=== PATIENT | male | born 1950 | race Hispanic/Latino ===

== ENCOUNTER 2018-02-07 13:10 | Inpatient (IN) | payer OTHER ==
[~2018-02-07] VITALS: Ht 167.6 cm; Wt 72.1 kg
[2018-02-07 14:02] LABS: BASOPHILS % (AUTO) 1.5 % (0.0-5.0); EOSINOPHILS % (AUTO) 6.7 % (0.0-8.0); LYMPHOCYTES % (AUTO) 19.4 % (21.0-51.0); MEAN CORPUSCULAR HEMOGLOBIN 32.2 pg (27.0-33.0); MEAN CORPUSCULAR HGB CONC 34.9 g/dL (32.0-36.0); MEAN CORPUSCULAR VOLUME 92.2 fL (79-99); MONOCYTES % (AUTO) 8.3 % (3.0-13.0); NEUTROPHILS % (AUTO) 64.1 % (40.0-77.0); NUCLEATED RED BLOOD CELLS 0.1 % (0.0-0.19); PLATELET COUNT (AUTO) 249 K/uL (130-400); RED BLOOD CELL COUNT(AUTO) 3.15 MIL/uL (4.50-6.20); RED CELL DISTRIBUTION WIDTH 14.9 % (11.0-15.5); WHITE BLOOD COUNT (AUTO) 7.7 K/uL (4.8-10.8)
[2018-02-07] MEDS ORDERED: CEFEPIME HCL 1 GM VIAL ONE (14:03)
[2018-02-07 14:07] LABS: CREATININE 3.3 mg/dL (0.5-1.5)
[2018-02-07 14:13] LABS: ALBUMIN 3.1 g/dL (3.5-5.0); BILIRUBIN,TOTAL 0.4 mg/dL (0.2-1.0); TOTAL PROTEIN, SERUM 8.2 g/dL (6.0-8.3)
[2018-02-07 15:00] VITALS: BP 143/76
[2018-02-07] MEDS ORDERED: 1/2 NORMAL SALINE 1,000 ML IV SCH (15:00)
[2018-02-07] MEDS ORDERED: DEXTROSE 50%-WATER 50 ML DISP.SYRIN IV PRN (15:15)
[2018-02-07] MEDS ORDERED: SODIUM POLYSTYRENE SULFONATE 15 GM/60 ML ML PO SCH (15:15)
[2018-02-07] MEDS ORDERED: GLUCAGON 1MG KIT 1 MG ML IM PRN (15:15)
[2018-02-07] MEDS: INSULIN R PO SS1 SQ SCH ×2 (16:30→21:00)
[2018-02-07] MEDS ORDERED: GLIP2.5T2 PO (16:36)
[2018-02-07] MEDS ORDERED: CHOLECALCIFEROL PO (16:36)
[2018-02-07] MEDS ORDERED: FERR325T22 PO (16:36)
[2018-02-07] MEDS ORDERED: PANT40TA PO (16:36)
[2018-02-07] MEDS ORDERED: ATOR40TA69 PO (16:36)
[2018-02-07] MEDS ORDERED: AMLO5TAB2 PO (16:36)
[2018-02-07] MEDS ORDERED: ASPI-449 PO (16:36)
[2018-02-07] MEDS ORDERED: METO37.5 PO (16:36)
[2018-02-07] MEDS ORDERED: ERGO2500 PO (16:36)
[2018-02-07] MEDS ORDERED: SODIUM POLYSTYRENE SULFONATE 15 GM/60 ML ML PO NR (19:00)
[2018-02-07 20:00] VITALS: BP 161/81
[2018-02-07] MEDS: CEFEPIME HCL 1 GM VIAL IVP SCH (22:03)
[2018-02-07 23:54] VITALS: BP 149/79
[2018-02-08 04:00] VITALS: BP 144/77
[2018-02-08 04:53] LABS: HEMATOCRIT 25.2 % (42-54); MEAN CORPUSCULAR HEMOGLOBIN 32.1 pg (27.0-33.0); MEAN CORPUSCULAR HGB CONC 35.5 g/dL (32.0-36.0); MEAN CORPUSCULAR VOLUME 90.5 fL (79-99); PLATELET COUNT (AUTO) 234 K/uL (130-400); RED BLOOD CELL COUNT(AUTO) 2.79 MIL/uL (4.50-6.20); RED CELL DISTRIBUTION WIDTH 14.7 % (11.0-15.5); WHITE BLOOD COUNT (AUTO) 6.3 K/uL (4.8-10.8)
[2018-02-08 05:14] LABS: ALBUMIN 2.7 g/dL (3.5-5.0); BILIRUBIN,TOTAL 0.3 mg/dL (0.2-1.0); CREATININE 3.2 mg/dL (0.5-1.5); POTASSIUM 4.8 mmol/L (3.5-5.1); TOTAL PROTEIN, SERUM 7.3 g/dL (6.0-8.3)
[2018-02-08] MEDS: INSULIN R PO SS1 SQ SCH ×4 (06:34→21:00)
[2018-02-08 08:25] VITALS: BP 149/76
[2018-02-08] MEDS: AMLODIPINE BESYLATE 5 MG TAB PO SCH ×2 (08:53→22:29)
[2018-02-08] MEDS: CEFEPIME HCL 1 GM VIAL IVP SCH ×2 (08:53→22:28)
[2018-02-08] MEDS: METOPROLOL TARTRATE 25 MG TAB PO SCH ×2 (08:53→22:28)
[2018-02-08] MEDS: FERROUS SULFATE 325 MG TABLET.DR PO SCH (08:53)
[2018-02-08] MEDS: ASPIRIN 81 MG EC TAB PO SCH (08:53)
[2018-02-08] MEDS: PANTOPRAZOLE SODIUM 40 MG TABLET.DR PO SCH ×2 (08:53→22:28)
[2018-02-08] MEDS: GLIPIZIDE XL 2.5MG TAB PO SCH (08:54)
[2018-02-08] MEDS: CHOLECALCIFEROL 2000 UNIT PO SCH (09:00)
[2018-02-08] MEDS ORDERED: ERGOCALCIFEROL (VITAMIN D2) 50,000 UNIT CAPSULE PO SCH (09:00)
[2018-02-08 11:57] VITALS: BP 150/78
[2018-02-08] MEDS: 1/2 NORMAL SALINE 1,000 ML IV SCH ×2 (12:49→22:29)
[2018-02-08 15:41] VITALS: BP 142/73
[2018-02-08 19:57] VITALS: BP 162/85
[2018-02-08] MEDS: ATORVASTATIN CALCIUM 40 MG TABLET PO SCH (22:27)
[2018-02-08 23:56] VITALS: BP 136/71
[2018-02-09 04:00] VITALS: BP 129/65
[2018-02-09 04:45] LABS: HEMATOCRIT 26.5 % (42-54); MEAN CORPUSCULAR HEMOGLOBIN 30.4 pg (27.0-33.0); MEAN CORPUSCULAR HGB CONC 33.8 g/dL (32.0-36.0); MEAN CORPUSCULAR VOLUME 90.1 fL (79-99); PLATELET COUNT (AUTO) 245 K/uL (130-400); RED BLOOD CELL COUNT(AUTO) 2.94 MIL/uL (4.50-6.20); RED CELL DISTRIBUTION WIDTH 14.3 % (11.0-15.5); WHITE BLOOD COUNT (AUTO) 7.2 K/uL (4.8-10.8)
[2018-02-09 04:56] LABS: CREATININE 2.8 mg/dL (0.5-1.5); POTASSIUM 4.2 mmol/L (3.5-5.1)
[2018-02-09 05:18] LABS: % IRON SATURATION 27.1 % (30-44)
[2018-02-09] MEDS: INSULIN R PO SS1 SQ SCH ×4 (06:23→21:00)
[2018-02-09] MEDS: ASPIRIN 81 MG EC TAB PO SCH (08:28)
[2018-02-09] MEDS: FERROUS SULFATE 325 MG TABLET.DR PO SCH (08:29)
[2018-02-09] MEDS: PANTOPRAZOLE SODIUM 40 MG TABLET.DR PO SCH ×2 (08:29→20:57)
[2018-02-09] MEDS: METOPROLOL TARTRATE 25 MG TAB PO SCH ×2 (08:29→20:57)
[2018-02-09] MEDS: AMLODIPINE BESYLATE 5 MG TAB PO SCH ×2 (08:29→20:57)
[2018-02-09] MEDS: GLIPIZIDE XL 2.5MG TAB PO SCH (08:30)
[2018-02-09] MEDS: CEFEPIME HCL 1 GM VIAL IVP SCH ×2 (08:30→20:56)
[2018-02-09] MEDS: FOLIC ACID/VITAMIN B COMP W-C 1 MG CAPSULE PO SCH (08:33)
[2018-02-09] MEDS: CHOLECALCIFEROL 2000 UNIT PO SCH (08:53)
[2018-02-09 10:11] VITALS: BP 146/74
[2018-02-09] MEDS: 1/2 NORMAL SALINE 1,000 ML IV SCH (11:20)
[2018-02-09 12:35] VITALS: BP 146/81
[2018-02-09 17:36] VITALS: BP 140/76
[2018-02-09] MEDS ORDERED: CEPH500C2 PO (17:39)
[2018-02-09 19:00] VITALS: BP 144/74
[2018-02-09 19:04] LABS: CREATININE,SERUM FOR CRCL 2.8 mg/dL (0.6-1.3)
[2018-02-09 19:06] LABS: COLLECTION PERIOD,URINE 24 HR; TOTAL VOLUME 24HRS,URINE 2000 mL; TPROTEIN TIMED,URINE 119 mg/dL; TPROTEIN U,24HR CALC 2380 mg/24HR (0-165)
[2018-02-09] MEDS: ATORVASTATIN CALCIUM 40 MG TABLET PO SCH (20:56)
[2018-02-09 23:00] VITALS: BP 139/65
[2018-02-10 03:00] VITALS: BP 132/68
[2018-02-10] MEDS: 1/2 NORMAL SALINE 1,000 ML IV SCH ×2 (03:30→18:14)
[2018-02-10 05:01] LABS: MEAN CORPUSCULAR HEMOGLOBIN 32.2 pg (27.0-33.0); MEAN CORPUSCULAR HGB CONC 35.9 g/dL (32.0-36.0); MEAN CORPUSCULAR VOLUME 89.7 fL (79-99); PLATELET COUNT (AUTO) 213 K/uL (130-400); RED BLOOD CELL COUNT(AUTO) 2.56 MIL/uL (4.50-6.20); RED CELL DISTRIBUTION WIDTH 14.7 % (11.0-15.5); WHITE BLOOD COUNT (AUTO) 7.1 K/uL (4.8-10.8)
[2018-02-10 05:13] LABS: POTASSIUM 4.2 mmol/L (3.5-5.1)
[2018-02-10 08:18] VITALS: BP 140/89
[2018-02-10] MEDS: CHOLECALCIFEROL 2000 UNIT PO SCH (09:00)
[2018-02-10] MEDS: FOLIC ACID/VITAMIN B COMP W-C 1 MG CAPSULE PO SCH (09:39)
[2018-02-10] MEDS: ASPIRIN 81 MG EC TAB PO SCH (09:39)
[2018-02-10] MEDS: FERROUS SULFATE 325 MG TABLET.DR PO SCH (09:39)
[2018-02-10] MEDS: AMLODIPINE BESYLATE 5 MG TAB PO SCH ×2 (09:39→21:05)
[2018-02-10] MEDS: METOPROLOL TARTRATE 25 MG TAB PO SCH ×2 (09:40→21:06)
[2018-02-10] MEDS: GLIPIZIDE XL 2.5MG TAB PO SCH (09:42)
[2018-02-10] MEDS: CEFEPIME HCL 1 GM VIAL IVP SCH ×2 (09:43→21:09)
[2018-02-10] MEDS: PANTOPRAZOLE SODIUM 40 MG TABLET.DR PO SCH ×2 (09:49→21:05)
[2018-02-10] MEDS: INSULIN R PO SS1 SQ SCH ×3 (11:30→21:00)
[2018-02-10 12:20] VITALS: BP 130/72
[2018-02-10 15:53] VITALS: BP 137/67
[2018-02-10 20:00] VITALS: BP 140/73
[2018-02-10] MEDS: ATORVASTATIN CALCIUM 40 MG TABLET PO SCH (21:09)
[2018-02-11] VITALS: BP 124/61
[2018-02-11 04:00] VITALS: BP 131/63
[2018-02-11 06:31] LABS: HEMATOCRIT 24.2 % (42-54); MEAN CORPUSCULAR HEMOGLOBIN 31.1 pg (27.0-33.0); MEAN CORPUSCULAR VOLUME 88.9 fL (79-99); PLATELET COUNT (AUTO) 209 K/uL (130-400); RED BLOOD CELL COUNT(AUTO) 2.73 MIL/uL (4.50-6.20); RED CELL DISTRIBUTION WIDTH 14.5 % (11.0-15.5)
[2018-02-11 06:38] LABS: CREATININE 2.9 mg/dL (0.5-1.5); POTASSIUM 3.9 mmol/L (3.5-5.1)
[2018-02-11] MEDS: INSULIN R PO SS1 SQ SCH ×4 (07:30→21:00)
[2018-02-11 08:23] VITALS: BP 144/72
[2018-02-11] MEDS: ASPIRIN 81 MG EC TAB PO SCH (08:57)
[2018-02-11] MEDS: FERROUS SULFATE 325 MG TABLET.DR PO SCH (08:57)
[2018-02-11] MEDS: PANTOPRAZOLE SODIUM 40 MG TABLET.DR PO SCH ×2 (08:57→21:25)
[2018-02-11] MEDS: CEFEPIME HCL 1 GM VIAL IVP SCH ×2 (08:57→21:26)
[2018-02-11] MEDS: CHOLECALCIFEROL 2000 UNIT PO SCH (08:58)
[2018-02-11] MEDS: METOPROLOL TARTRATE 25 MG TAB PO SCH ×2 (08:58→21:25)
[2018-02-11] MEDS: AMLODIPINE BESYLATE 5 MG TAB PO SCH ×2 (08:58→21:25)
[2018-02-11] MEDS: GLIPIZIDE XL 2.5MG TAB PO SCH (08:58)
[2018-02-11] MEDS: FOLIC ACID/VITAMIN B COMP W-C 1 MG CAPSULE PO SCH (08:58)
[2018-02-11 11:40] VITALS: BP 136/69
[2018-02-11 12:13] LABS: INR 1.04 (0.85-1.15); PROTHROMBIN TIME 10.7 SEC (9.6-11.6)
[2018-02-11 16:58] VITALS: BP 149/72
[2018-02-11 20:00] VITALS: BP 136/60
[2018-02-11] MEDS: ATORVASTATIN CALCIUM 40 MG TABLET PO SCH (21:25)
[2018-02-12] MEDS: 1/2 NORMAL SALINE 1,000 ML IV SCH (01:56)
[2018-02-12 04:00] VITALS: BP 140/75
[2018-02-12] MEDS: INSULIN R PO SS1 SQ SCH ×4 (05:50→20:58)
[2018-02-12 06:47] LABS: HEMATOCRIT 22.8 % (42-54); MEAN CORPUSCULAR HEMOGLOBIN 31.7 pg (27.0-33.0); MEAN CORPUSCULAR HGB CONC 35.6 g/dL (32.0-36.0); PLATELET COUNT (AUTO) 187 K/uL (130-400); RED BLOOD CELL COUNT(AUTO) 2.56 MIL/uL (4.50-6.20); RED CELL DISTRIBUTION WIDTH 14.5 % (11.0-15.5); WHITE BLOOD COUNT (AUTO) 7.1 K/uL (4.8-10.8)
[2018-02-12 07:08] LABS: CREATININE 2.6 mg/dL (0.5-1.5); POTASSIUM 3.9 mmol/L (3.5-5.1)
[2018-02-12 07:42] VITALS: BP 128/65
[2018-02-12] MEDS: ASPIRIN 81 MG EC TAB PO SCH (09:00)
[2018-02-12] MEDS: AMLODIPINE BESYLATE 5 MG TAB PO SCH ×2 (09:00→20:54)
[2018-02-12] MEDS: FOLIC ACID/VITAMIN B COMP W-C 1 MG CAPSULE PO SCH (09:00)
[2018-02-12] MEDS: GLIPIZIDE XL 2.5MG TAB PO SCH (09:00)
[2018-02-12] MEDS: METOPROLOL TARTRATE 25 MG TAB PO SCH ×2 (09:00→20:54)
[2018-02-12] MEDS: CHOLECALCIFEROL 2000 UNIT PO SCH (09:00)
[2018-02-12] MEDS: FERROUS SULFATE 325 MG TABLET.DR PO SCH (09:00)
[2018-02-12] MEDS: CEFEPIME HCL 1 GM VIAL IVP SCH ×2 (09:00→20:54)
[2018-02-12] MEDS: PANTOPRAZOLE SODIUM 40 MG TABLET.DR PO SCH ×2 (09:00→20:54)
[2018-02-12 11:57] VITALS: BP 135/60
[2018-02-12 16:00] VITALS: BP 138/70
[2018-02-12 20:00] VITALS: BP 134/68
[2018-02-12] MEDS: ATORVASTATIN CALCIUM 40 MG TABLET PO SCH (20:53)
[2018-02-12 23:46] VITALS: BP 136/70
[2018-02-13 04:00] VITALS: BP 140/73
[2018-02-13] MEDS: INSULIN R PO SS1 SQ SCH ×3 (07:30→16:30)
[2018-02-13 08:00] VITALS: BP 145/74
[2018-02-13] MEDS: CHOLECALCIFEROL 2000 UNIT PO SCH (09:00)
[2018-02-13] MEDS: CEFEPIME HCL 1 GM VIAL IVP SCH (10:05)
[2018-02-13] MEDS: ASPIRIN 81 MG EC TAB PO SCH (10:06)
[2018-02-13] MEDS: GLIPIZIDE XL 2.5MG TAB PO SCH (10:06)
[2018-02-13] MEDS: AMLODIPINE BESYLATE 5 MG TAB PO SCH (10:06)
[2018-02-13] MEDS: METOPROLOL TARTRATE 25 MG TAB PO SCH (10:06)
[2018-02-13] MEDS: PANTOPRAZOLE SODIUM 40 MG TABLET.DR PO SCH (10:06)
[2018-02-13] MEDS: FOLIC ACID/VITAMIN B COMP W-C 1 MG CAPSULE PO SCH (10:06)
[2018-02-13] MEDS: FERROUS SULFATE 325 MG TABLET.DR PO SCH (10:06)
[2018-02-13 11:00] VITALS: BP 141/66
[2018-02-13 16:00] VITALS: BP 138/66
== END 2018-02-13 18:00 | DRG 602 ==
LOC: EDH 13:10 → EDHIP 13:45 → 3CH 14:38
PROVIDERS: ADMIT Internal Medicine; ATTEND Internal Medicine
PROC: 02HV33Z Insertion of Infusion Device into Superior Vena Cava, Percutaneous Approach (ICD-10-PCS; principal; 2018-02-09)
DX: L03.115 Cellulitis of right lower limb (principal); N17.0 Acute kidney failure with tubular necrosis; I13.0 Hypertensive heart and chronic kidney disease with heart failure and stage 1 through stage 4 chronic kidney disease, or unspecified chronic kidney disease; N18.4 Chronic kidney disease, stage 4 (severe); E11.22 Type 2 diabetes mellitus with diabetic chronic kidney disease; E11.51 Type 2 diabetes mellitus with diabetic peripheral angiopathy without gangrene; E11.319 Type 2 diabetes mellitus with unspecified diabetic retinopathy without macular edema; E87.5 Hyperkalemia; L97.519 Non-pressure chronic ulcer of other part of right foot with unspecified severity; E11.621 Type 2 diabetes mellitus with foot ulcer; I50.9 Heart failure, unspecified; D64.9 Anemia, unspecified; E78.5 Hyperlipidemia, unspecified; I25.10 Atherosclerotic heart disease of native coronary artery without angina pectoris; Z86.73 Personal history of transient ischemic attack (TIA), and cerebral infarction without residual deficits
CPT/HCPCS: 36415; 71045; 73630; 76770; 80048; 80053; 82575; 82607; 82728; 82746; 82948; 83540; 83550; 84156; 85025; 85027; 85610; 93005; 93306; 93925; A4218; C1894; J0692

== ENCOUNTER 2018-07-30 12:58 | Inpatient (IN) | payer OTHER ==
[2018-07-30] VITALS: BP_SYST 113; BP_SYST 143; BP_DIAS 72; BP_DIAS 75
[~2018-07-30] VITALS: Ht 167.6 cm; Wt 72.8 kg
[~2018-07-30 12:58] MED LIST: AMLO5TAB7 PO; ASPI-449 PO; ATOR40TA69 PO; CHOLECALCIFEROL PO; ERGO2500 PO; FERR325T22 PO; GLIP2.5T2 PO; METO37.5 PO; PANT40TA PO
[2018-07-30 13:57] LABS: BASOPHILS % (AUTO) 0.7 % (0.0-5.0); CREATININE 4.1 mg/dL (0.5-1.5); EOSINOPHILS % (AUTO) 2.8 % (0.0-8.0); LYMPHOCYTES % (AUTO) 15.9 % (21.0-51.0); MEAN CORPUSCULAR HEMOGLOBIN 32.3 pg (27.0-33.0); MEAN CORPUSCULAR HGB CONC 34.1 g/dL (32.0-36.0); MEAN CORPUSCULAR VOLUME 94.6 fL (79-99); NEUTROPHILS % (AUTO) 72.6 % (40.0-77.0); PLATELET COUNT (AUTO) 124 K/uL (130-400); POTASSIUM 4.1 mmol/L (3.5-5.1); RED BLOOD CELL COUNT(AUTO) 2.64 MIL/uL (4.50-6.20); RED CELL DISTRIBUTION WIDTH 15.2 % (11.0-15.5); WHITE BLOOD COUNT (AUTO) 6.8 K/uL (4.8-10.8)
[2018-07-30] MEDS ORDERED: ZOSYN 3.375GM+NS 50ML 50 ML IV ONE (15:14)
[2018-07-30] MEDS ORDERED: SODIUM CHLORIDE 0.9% 50 ML IV ONE (15:15)
[2018-07-30] MEDS ORDERED: VANCOMYCIN 1GM+NS 250ML 250 ML IV SCH (15:30)
[2018-07-30] MEDS ORDERED: HYDROMORPHONE 1 MG/1 ML AMP IVP PRN (15:45)
[2018-07-30] MEDS ORDERED: GLUCAGON 1MG KIT 1 MG ML IM PRN (16:00)
[2018-07-30] MEDS ORDERED: DEXTROSE 50%-WATER 50 ML DISP.SYRIN IV PRN (16:00)
[2018-07-30] MEDS ORDERED: CLONIDINE HCL 0.1 MG TABLET PO PRN (16:00)
[2018-07-30] MEDS ORDERED: VANCOMYCIN PROTOCOL PER PHARMACY IV SCH (16:00)
[2018-07-30] MEDS ORDERED: VANCOMYCIN 1GM+NS 250ML 250 ML IV ONE (16:58)
[2018-07-30] MEDS ORDERED: CLONIDINE HCL 0.1 MG TABLET ONE (17:38)
[2018-07-30 19:24] VITALS: BP 172/80
[2018-07-30] MEDS: ENOXAPARIN SODIUM 40 MG/0.4 ML SYRINGE SQ SCH (20:49)
[2018-07-30] MEDS ORDERED: SODPOLY15G PO (20:59)
[2018-07-30] MEDS ORDERED: HYDR-4153 PO (21:00)
[2018-07-30] MEDS: INSULIN R PO SS1 SQ SCH (21:00)
[2018-07-30] MEDS ORDERED: METO50TA18 PO (21:02)
[2018-07-30] MEDS ORDERED: SODI325T PO (21:05)
[2018-07-30] MEDS ORDERED: VIT-7 PO (21:06)
[2018-07-30] MEDS ORDERED: CHOL100018 PO (21:07)
[2018-07-30] MEDS ORDERED: PANT40TA25 PO (21:10)
[2018-07-30] MEDS: 1/2 NORMAL SALINE 1,000 ML IV SCH ×2 (21:24→23:32)
[2018-07-31] VITALS (23 sets, daily range): BP systolic 123–180; BP diastolic 49–84
[2018-07-31] MEDS: ZOSYN 3.375GM+NS 50ML 50 ML IV SCH ×2 (04:23→16:55)
[2018-07-31 04:33] LABS: HEMATOCRIT 24.2 % (42-54); MEAN CORPUSCULAR HEMOGLOBIN 32.1 pg (27.0-33.0); MEAN CORPUSCULAR HGB CONC 33.9 g/dL (32.0-36.0); MEAN CORPUSCULAR VOLUME 94.5 fL (79-99); PLATELET COUNT (AUTO) 133 K/uL (130-400); RED BLOOD CELL COUNT(AUTO) 2.56 MIL/uL (4.50-6.20); RED CELL DISTRIBUTION WIDTH 15.8 % (11.0-15.5); WHITE BLOOD COUNT (AUTO) 6.6 K/uL (4.8-10.8)
[2018-07-31 04:50] LABS: CREATININE 4.3 mg/dL (0.5-1.5); POTASSIUM 4.3 mmol/L (3.5-5.1)
[2018-07-31] MEDS: INSULIN R PO SS1 SQ SCH ×4 (06:04→20:47)
[2018-07-31] MEDS: 1/2 NORMAL SALINE 1,000 ML IV SCH ×2 (08:42→20:46)
[2018-07-31] MEDS: ENOXAPARIN SODIUM 40 MG/0.4 ML SYRINGE SQ SCH (08:42)
[2018-07-31] MEDS ORDERED: LIDOCAINE HCL 1% MDV 50ML VIAL ONE (12:40)
[2018-07-31] MEDS ORDERED: BUPIVACAINE/PF 0.5% 30ML VIAL ONE (12:40)
[2018-07-31] MEDS ORDERED: MIDAZOLAM HCL 1 MG/ML 2ML VIAL ONE (13:41)
[2018-07-31] MEDS ORDERED: SODIUM CHLORIDE 0.9% 1000ML 1,000 ML IV ONE (13:52)
[2018-07-31] MEDS ORDERED: MORPHINE SULFATE 4 MG/1ML SYG ONE (15:00)
[2018-07-31] MEDS ORDERED: HYDRALAZINE HCL 20 MG/ML VIAL ONE (15:24)
[2018-07-31] MEDS ORDERED: MORPHINE SULFATE 2 MG/ML 1ML SYG IVP PRN (16:30)
[2018-07-31] MEDS ORDERED: HYDROMORPHONE 1 MG/1 ML AMP IVP PRN (16:30)
[2018-07-31] MEDS ORDERED: HYDROCODONE/ACETAMINOPHEN 5/325 MG TAB PO PRN (16:30)
[2018-08-01] VITALS (7 sets, daily range): BP systolic 120–156; BP diastolic 49–86
[2018-08-01] MEDS: ZOSYN 3.375GM+NS 50ML 50 ML IV SCH ×2 (03:53→17:07)
[2018-08-01 04:32] LABS: BASOPHILS % (AUTO) 0.7 % (0.0-5.0); EOSINOPHILS % (AUTO) 3.7 % (0.0-8.0); HEMATOCRIT 22.8 % (42-54); LYMPHOCYTES % (AUTO) 16.8 % (21.0-51.0); MEAN CORPUSCULAR HEMOGLOBIN 31.8 pg (27.0-33.0); MEAN CORPUSCULAR HGB CONC 33.8 g/dL (32.0-36.0); MONOCYTES % (AUTO) 8.1 % (3.0-13.0); NEUTROPHILS % (AUTO) 70.7 % (40.0-77.0); PLATELET COUNT (AUTO) 123 K/uL (130-400); RED BLOOD CELL COUNT(AUTO) 2.42 MIL/uL (4.50-6.20); RED CELL DISTRIBUTION WIDTH 15.6 % (11.0-15.5); WHITE BLOOD COUNT (AUTO) 6.3 K/uL (4.8-10.8)
[2018-08-01 04:47] LABS: ALBUMIN 2.8 g/dL (3.5-5.0); BILIRUBIN,TOTAL 0.4 mg/dL (0.2-1.0); CREATININE 3.9 mg/dL (0.5-1.5); POTASSIUM 4.1 mmol/L (3.5-5.1)
[2018-08-01] MEDS: INSULIN R PO SS1 SQ SCH ×4 (06:28→20:47)
[2018-08-01] MEDS ORDERED: ERGOCALCIFEROL (VITAMIN D2) 50,000 UNIT CAPSULE PO SCH (09:00)
[2018-08-01] MEDS: **HM**(Cholecalciferol (Vitamin D3) (Vitamin D3) 1,000 UNIT PO SCH (09:00)
[2018-08-01] MEDS: GLIPIZIDE XL 2.5MG TAB PO SCH (09:44)
[2018-08-01] MEDS: FERROUS SULFATE 325 MG TABLET.DR PO SCH (09:45)
[2018-08-01] MEDS: PANTOPRAZOLE SODIUM 40 MG TABLET.DR PO SCH (09:45)
[2018-08-01] MEDS: AMLODIPINE BESYLATE 5 MG TAB PO SCH ×2 (09:45→20:47)
[2018-08-01] MEDS: METOPROLOL TARTRATE 50 MG TAB PO SCH ×2 (09:46→20:47)
[2018-08-01] MEDS: HYDRALAZINE HCL 25 MG TABLET PO SCH ×2 (09:46→20:46)
[2018-08-01] MEDS: ASPIRIN 81MG TAB.CHEW PO SCH (09:47)
[2018-08-01] MEDS: FOLIC ACID/VITAMIN B COMP W-C 1 MG CAPSULE PO SCH (09:47)
[2018-08-01] MEDS: ENOXAPARIN SODIUM 40 MG/0.4 ML SYRINGE SQ SCH (09:49)
[2018-08-01] MEDS: 1/2 NORMAL SALINE 1,000 ML IV SCH (09:51)
[2018-08-01 12:04] LABS: INR 1.07 (0.85-1.15); PROTHROMBIN TIME 11.2 SEC (9.6-11.6)
[2018-08-01] MEDS ORDERED: VANCOMYCIN 1GM+NS 250ML 250 ML IV SCH (16:00)
[2018-08-01] MEDS ORDERED: ATORVASTATIN CALCIUM 40 MG TABLET PO SCH (21:00)
[2018-08-02] MEDS: 1/2 NORMAL SALINE 1,000 ML IV SCH ×2 (00:24→12:29)
[2018-08-02 03:00] VITALS: BP 142/69
[2018-08-02] MEDS: ZOSYN 3.375GM+NS 50ML 50 ML IV SCH (03:49)
[2018-08-02] MEDS: INSULIN R PO SS1 SQ SCH ×2 (06:09→11:30)
[2018-08-02 08:00] VITALS: BP 140/83
[2018-08-02] MEDS: **HM**(Cholecalciferol (Vitamin D3) (Vitamin D3) 1,000 UNIT PO SCH (09:00)
[2018-08-02] MEDS: FERROUS SULFATE 325 MG TABLET.DR PO SCH (09:30)
[2018-08-02] MEDS: AMLODIPINE BESYLATE 5 MG TAB PO SCH (09:30)
[2018-08-02] MEDS: PANTOPRAZOLE SODIUM 40 MG TABLET.DR PO SCH (09:31)
[2018-08-02] MEDS: ASPIRIN 81MG TAB.CHEW PO SCH (09:31)
[2018-08-02] MEDS: HYDRALAZINE HCL 25 MG TABLET PO SCH (09:31)
[2018-08-02] MEDS: FOLIC ACID/VITAMIN B COMP W-C 1 MG CAPSULE PO SCH (09:31)
[2018-08-02] MEDS: GLIPIZIDE XL 2.5MG TAB PO SCH (09:32)
[2018-08-02] MEDS: METOPROLOL TARTRATE 50 MG TAB PO SCH (09:32)
[2018-08-02] MEDS: ENOXAPARIN SODIUM 40 MG/0.4 ML SYRINGE SQ SCH (09:35)
[2018-08-02 12:00] VITALS: BP 135/67
[2018-08-02 15:44] VITALS: BP 141/61
== END 2018-08-02 18:19 | DRG 239 ==
LOC: EDH 12:58 → EDHIP 15:17 → 3BH 19:58
PROVIDERS: ADMIT Internal Medicine; ATTEND Internal Medicine
PROC: 0Y6N0ZB Detachment at Left Foot, Partial 2nd Ray, Open Approach (ICD-10-PCS; principal; 2018-07-30)
PROC: 0Y6N0ZC Detachment at Left Foot, Partial 3rd Ray, Open Approach (ICD-10-PCS; 2018-07-30)
DX: E11.52 Type 2 diabetes mellitus with diabetic peripheral angiopathy with gangrene (principal); N18.6 End stage renal disease; I12.0 Hypertensive chronic kidney disease with stage 5 chronic kidney disease or end stage renal disease; G81.91 Hemiplegia, unspecified affecting right dominant side; L03.116 Cellulitis of left lower limb; D64.9 Anemia, unspecified; E11.22 Type 2 diabetes mellitus with diabetic chronic kidney disease; E11.42 Type 2 diabetes mellitus with diabetic polyneuropathy; E78.5 Hyperlipidemia, unspecified; Z86.73 Personal history of transient ischemic attack (TIA), and cerebral infarction without residual deficits; Z87.891 Personal history of nicotine dependence
CPT/HCPCS: 36415; 71045; 73630; 73718; 80048; 80053; 82948; 83605; 85025; 85027; 85610; 87040; 87070; 87076; 87077; 87186; 87205; 88305; 88311; 93925; 97039; C1894; J0360; J1650; J2250; J2270; J2543; J3370; J3490; J7030